=== PATIENT | female | born 1960 | race Hispanic/Latino ===

== ENCOUNTER → 2018-07-03 | Outpatient (CLI) | payer MEDICARE | END | disposition home or self-care (01) | LOC: RAH 12:22 | PROVIDERS: ATTEND Family Medicine | DX: R07.9 Chest pain, unspecified (principal) | CPT/HCPCS: 71046 ==

== ENCOUNTER → 2018-08-16 | Outpatient (CLI) | payer MEDICARE | END | disposition home or self-care (01) | LOC: RAH 09:01 | PROVIDERS: ATTEND Family Medicine | DX: K21.9 Gastro-esophageal reflux disease without esophagitis (principal); K22.4 Dyskinesia of esophagus; K44.9 Diaphragmatic hernia without obstruction or gangrene | CPT/HCPCS: 74240 ==

== ENCOUNTER → 2018-09-04 | Outpatient (CLI) | payer MEDICARE | END | disposition home or self-care (01) | LOC: RAH 12:38 | PROVIDERS: ATTEND Family Medicine | DX: T14.8XXA Other injury of unspecified body region, initial encounter (principal); W13.9XXA Fall from, out of or through building, not otherwise specified, initial encounter; M25.552 Pain in left hip; X58.XXXA Exposure to other specified factors, initial encounter; Y93.89 Activity, other specified; Y92.89 Other specified places as the place of occurrence of the external cause; Y99.8 Other external cause status | CPT/HCPCS: 72040; 73030; 73080; 73502 ==

== ENCOUNTER → 2018-12-10 | Outpatient (CLI) | payer MEDICARE | END | disposition home or self-care (01) | LOC: RAH 10:52 | PROVIDERS: ATTEND Family Medicine | DX: Z01.818 Encounter for other preprocedural examination (principal) | CPT/HCPCS: 71046 ==

== ENCOUNTER → 2020-04-08 | Outpatient (CLI) | payer MEDICARE | END | disposition home or self-care (01) | LOC: RAH 11:04 | PROVIDERS: ATTEND Family Medicine | DX: I10 Essential (primary) hypertension (principal) | CPT/HCPCS: 71046 ==

== ENCOUNTER 2023-05-24 07:18 | Observation (INO) | payer OTHER, MEDICARE ==
[2023-05-22 13:25] LABS: BASOPHILS # (AUTO) 0.02 K/uL (0.00-0.20); BASOPHILS % (AUTO) 0.3 % (0.0-5.0); EOSINOPHILS # (AUTO) 0.24 K/uL (0.00-0.70); EOSINOPHILS % (AUTO) 4.2 % (0.0-8.0); HEMATOCRIT 37.8 % (36-48); IMMATURE GRANULOCYTE ABSOLUTE 0.01 K/uL (0-1); LYMPHOCYTES # (AUTO) 1.7 K/uL (1.0-4.8); LYMPHOCYTES % (AUTO) 29.9 % (21.0-51.0); MEAN CORPUSCULAR HEMOGLOBIN 28.3 pg (27.0-33.0); MEAN CORPUSCULAR HGB CONC 32.5 g/dL (32.0-36.0); MEAN CORPUSCULAR VOLUME 87.1 fL (79-99); MONOCYTES # (AUTO) 0.5 K/uL (0.1-1.0); NEUTROPHILS # (AUTO) 3.3 K/uL (1.8-7.7); NEUTROPHILS % (AUTO) 57.4 % (40.0-77.0); PLATELET COUNT (AUTO) 174 K/uL (130-400); RED BLOOD CELL COUNT(AUTO) 4.34 MIL/uL (4.00-5.50); WHITE BLOOD COUNT (AUTO) 5.8 K/uL (4.8-10.8)
[2023-05-22 13:37] LABS: CREATININE 1.8 mg/dL (0.5-1.0); POTASSIUM 4.5 mmol/L (3.5-5.1)
[2023-05-22 13:39] VITALS: BP 127/66; PULSE 65; RESP 16
[2023-05-24] VITALS (28 sets, daily range): BP systolic 118–155; BP diastolic 54–80; PULSE 68–108; RESP 13–20; O2SAT 94–99
[~2023-05-24] VITALS: Ht 154.9 cm; Wt 70.9 kg
[~2023-05-24 07:18] MED LIST: AEC81 PO; AMLO-257 PO; DAPA10TA PO; FAMO40TA7 PO; FINE10TA PO; FOLI1TAB85 PO; GABA300C PO; LOSA100T59 PO; MIRA50TA PO; ONDA4TAB10 PO; PANT40TA54 PO; ROSU10TA28 PO
[2023-05-24] MEDS ORDERED: GABA600T10 PO (09:17)
[2023-05-24] MEDS: LACTATED RINGERS 1000ML 1,000 ML IV ONE (09:17)
[2023-05-24] MEDS ORDERED: FENTANYL CITRATE PF 50 MCG/1 ML 2ML VIAL ONE (10:15)
[2023-05-24] MEDS ORDERED: MIDAZOLAM HCL 1 MG/ML 2ML VIAL ONE (10:15)
[2023-05-24] MEDS ORDERED: PROPOFOL 10 MG/ML 20ML VIAL IV ONE (10:15)
[2023-05-24] MEDS ORDERED: ROCURONIUM BROMIDE 10MG/1ML 5ML VL ONE ×2 (10:18→11:44)
[2023-05-24] MEDS: CEFAZOLIN SODIUM 2 GM VIAL ONE (10:20)
[2023-05-24] MEDS ORDERED: EPHEDRINE SULFATE 50 MG/ML AMPULE ONE (10:45)
[2023-05-24] MEDS: BUPIVACAINE/PF 0.5% 30ML VIAL ONE (10:45)
[2023-05-24] MEDS ORDERED: GLYCOPYRROLATE 0.2 MG/ML 5 ML VIAL ONE (10:51)
[2023-05-24] MEDS ORDERED: NEOSTIGMINE METHYLSULFATE 1MG/ML IV ONE (11:49)
[2023-05-24] MEDS ORDERED: FAMOTIDINE 20MG VIAL IV ONE (11:53)
[2023-05-24] MEDS ORDERED: SUGAMMADEX SODIUM 200 MG/2 ML VIAL IV ONE (11:53)
[2023-05-24] MEDS ORDERED: ONDANSETRON 4MG INJ ONE (11:58)
[2023-05-24] MEDS ORDERED: MORPHINE 4 MG SYG IVP PRN (12:30)
[2023-05-24] MEDS ORDERED: HYDROCODONE/ACETAMINOPHEN 7.5/325 MG 15 ML UDCUP PO PRN (12:30)
[2023-05-24] MEDS ORDERED: ONDANSETRON 4MG INJ IVP PRN (12:30)
[2023-05-24] MEDS ORDERED: PROCHLORPERAZINE 10MG/2ML INJ IV PRN (12:30)
[2023-05-24] MEDS ORDERED: KETOROLAC 15MG/ML VIAL (15MG/ML) IV PRN (12:30)
[2023-05-24] MEDS ORDERED: MORPHINE 4 MG SYG IV PRN (13:00)
[2023-05-24] MEDS: ONDANSETRON 4MG INJ ONE (13:15)
[2023-05-24] MEDS: MEPERIDINE-PF 25 MG/ML SYG ONE ×2 (13:15→14:05)
[2023-05-24] MEDS: LACTATED RINGERS 1000ML 1,000 ML IV SCH (21:30)
[2023-05-24] MEDS: ENOXAPARIN SODIUM 30 MG/0.3 ML SQ SCH (21:31)
[2023-05-25 03:39] VITALS: BP 129/68; PULSE 92; RESP 18
[2023-05-25 08:00] VITALS: BP 132/70; PULSE 99; RESP 18; O2SAT 94
[2023-05-25] MEDS: PANTOPRAZOLE 40 MG/VIAL IVP SCH (10:30)
== END 2023-05-25 11:15 | disposition home or self-care (01) ==
LOC: DAH 07:18 → INTOOBSV 07:19 → DAH 07:19 → DAHIP 07:19 → 3AH 16:15
PROVIDERS: ADMIT Surgery; ATTEND Surgery
DX: K44.9 Diaphragmatic hernia without obstruction or gangrene (principal); K21.9 Gastro-esophageal reflux disease without esophagitis; Z79.899 Other long term (current) drug therapy
CPT/HCPCS: 80048; 85025; 86850; 86900; 86901; 36415; 93005; 43280; 96372; 71045; 96374; A6260; S2900; G0378 ×19; A4215 ×2; J7120; J3490 ×5; J3010; J1650; J2250; J2704; J2405 ×2; J2710; J0665; J2175 ×2; J0690; G0168; C1781; A4930; A4223; A4213; A4222; A4221; A4663; A4600; 43235

== ENCOUNTER → 2023-07-13 | Outpatient (CLI) | payer OTHER, MEDICARE ==
[~2023-07-13] MED LIST changes: -GABA300C PO; +GABA600T10 PO; -ROSU10TA28 PO; +ROSU10TA72 PO
== END | disposition home or self-care (01) ==
LOC: RAH 12:11
PROVIDERS: ATTEND Internal Medicine Cardiovascular Disease
DX: N18.4 Chronic kidney disease, stage 4 (severe) (principal); R60.9 Edema, unspecified; Z98.890 Other specified postprocedural states
CPT/HCPCS: 72170

== ENCOUNTER → 2023-07-13 | Outpatient (CLI) | payer OTHER, MEDICARE ==
[2023-07-13 14:41] LABS: BASOPHILS # (AUTO) 0.03 K/uL (0.00-0.20); BASOPHILS % (AUTO) 0.6 % (0.0-5.0); EOSINOPHILS # (AUTO) 0.22 K/uL (0.00-0.70); EOSINOPHILS % (AUTO) 4.5 % (0.0-8.0); IMMATURE GRANULOCYTE ABSOLUTE 0.01 K/uL (0-1); LYMPHOCYTES # (AUTO) 1.7 K/uL (1.0-4.8); LYMPHOCYTES % (AUTO) 35.1 % (21.0-51.0); MEAN CORPUSCULAR HEMOGLOBIN 28.4 pg (27.0-33.0); MEAN CORPUSCULAR HGB CONC 31.6 g/dL (32.0-36.0); MONOCYTES # (AUTO) 0.4 K/uL (0.1-1.0); MONOCYTES % (AUTO) 8.7 % (3.0-13.0); NEUTROPHILS # (AUTO) 2.5 K/uL (1.8-7.7); NEUTROPHILS % (AUTO) 50.9 % (40.0-77.0); PLATELET COUNT (AUTO) 174 K/uL (130-400); RED BLOOD CELL COUNT(AUTO) 4.22 MIL/uL (4.00-5.50); RED CELL DISTRIBUTION WIDTH 13.8 % (11.0-15.5); WHITE BLOOD COUNT (AUTO) 4.9 K/uL (4.8-10.8)
[2023-07-13 15:01] LABS: BILIRUBIN,TOTAL 0.9 mg/dL (0.2-1.0); POTASSIUM 4.4 mmol/L (3.5-5.1); TOTAL PROTEIN, SERUM 7.9 g/dL (6.0-8.3)
== END | disposition home or self-care (01) ==
LOC: LAB 08:11
PROVIDERS: ATTEND Internal Medicine Cardiovascular Disease
DX: R60.9 Edema, unspecified (principal); I10 Essential (primary) hypertension
CPT/HCPCS: 36415; 80053; 80061; 85025

== ENCOUNTER → 2023-12-21 | Outpatient (CLI) | payer OTHER, MEDICARE ==
[~2023-12-21] MED LIST changes: +GABA-1405 PO; -GABA600T10 PO; +ONDA-243 PO; -ONDA4TAB10 PO
[2023-12-21 12:48] LABS: CREATININE 1.9 mg/dL (0.5-1.0); POTASSIUM 4.4 mmol/L (3.5-5.1)
== END | disposition home or self-care (01) ==
LOC: LAB 08:03
PROVIDERS: ATTEND Internal Medicine Cardiovascular Disease
DX: I25.10 Atherosclerotic heart disease of native coronary artery without angina pectoris (principal); R42 Dizziness and giddiness
CPT/HCPCS: 36415; 80048